=== PATIENT | female | born 1970 | race Caucasian/White ===

== ENCOUNTER → 2016-06-26 | Day surgery (SDC) | payer OTHER ==
[~2016-06-26] VITALS: Ht 152.4 cm; Wt 65.8 kg
[~2016-06-26] MED LIST: CELEBREX200 MG PO; CLARITIN-D 12HR1 T12 PO; KEFLEX500 M1 PO; LYSTEDA650 MG PO; MULTIVITAMIN1 TAB PO; OXYCODONE HCL5 M1 PO; TORADOL10 MG PO; VALIUM5 M2 PO
--- NOTE | 2016-06-26 14:39 | Operative Report ---
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 Ancef was given and the right breast was prepped and draped in a sterile fashion using ChloraPrep. Local anesthesia 1% lidocaine exception Marcaine was given and a curvilinear incision was made at 9:00 in the right breast. The wire localizing the lesion at 11:00 was superior to the incision and the wire localizing the DCIS at 9:00 was inferior to the incision. The superior wire was brought into the incision and the air concern grasped using Allis clamp. The area was dissected using electrocautery and specimen was removed and marked for an tissues margin map. X-ray confirmed the presence of the clip in the specimen. The inferior wire then was brought into the incision and the air concern was grasped using an Allis clamp. Specimen was removed and marked for orientation using margin map. Intraoperative x-ray confirmed the presence of the clip in the specimen. This was close to the lateral margin and additional lateral margin tissue was taken as well. Stasis was achieved using electrocautery. Deep tissue was approximated using interrupted Vicryl sutures. The skin was closed using a running Monocryl subcutaneous color stitch. Steri- Strips and sterile dressings were applied and the patient was transferred to the recovery room in satisfactory condition having tolerated the procedure well.
--- NOTE | 2016-06-26 15:29 | MAMMOGRAPHY REPORT ---
EXAMINATION: MM PREOPERATIVE LOCALIZATION BREAST,RIGHT (X2) CLINICAL INFORMATION: A 46-year-old female with focal lobular carcinoma in situ at 10 o'clock, diagnosed on MRI-guided biopsy. 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 Preoperative needle localizations of both these 2 areas are requested. Patient is also known to have a tissue marker from prior MRI-guided biopsy at 12 o'clock which was benign. TECHNIQUE: After the details of the procedure, as well as the risks, benefits and alternatives to the procedure, were explained to the patient in detail, and all of her questions were answered, preoperative needle localization was performed. Mammographic imaging of the right breast in the LM projection confirms the presence of 2 tissue markers intended for surgical excision at 9 and 10 o'clock (nghia-shaped marker and a ribbon-shaped marker) at the site of prior ultrasound-guided and MRI-guided biopsies. The skin of the right breast was then cleansed with sterile solution. Using mammographic guidance, aseptic technique and 2% 10 mL lidocaine for local anesthesia, a 5 cm Kopans needle-wire system was advanced into the breast from a lateral approach, initially the 10 o'clock tissue marker. Subsequently, using similar technique and a 5 cm Kopans needle wire system, the 9 o'clock tissue marker was also localized. Orthogonal views were then obtained. Final adjustments of the needle tip positions were made, and the wires were deployed. The needles were taken out. The patient tolerated the procedure well, and was discharged from the department of radiology in good stable condition. The images were appropriately labelled. 2 separate worksheets were appropriately filled out and were sent with the patient to the OR. IMPRESSION: Successful mammographically-guided preoperative needle localization of the 10:00 and 9:00 tissue markers within the right breast. EXAMINATION: MM NEEDLE LOCALIZATION SPECIMEN FROM BREAST, RIGHT: TECHNIQUE: Single radiograph (x2) of each of the specimens were performed. FINDINGS: Both the specimens show the hookwire are delivered intact. The biopsy clip markers are identified in each specimens. IMPRESSION: 1. Successful needle localization of lobular carcinoma in situ within the right breast at 10 o'clock. 2. Successful needle localization DCIS within the right breast at 9 o'clock. Results were called to Dr. Morris in the operating room at the time of imaging. The histology reports are pending.
== END ==
LOC: CBW.IIU 06-12 07:00 → CBW.MAMMO 06-12 08:30 → STS 01:40 → CBW.IIU 07:00 → STS 07:00
DX: D05.01 Lobular carcinoma in situ of right breast (principal); D05.11 Intraductal carcinoma in situ of right breast; K21.9 Gastro-esophageal reflux disease without esophagitis
CPT/HCPCS: 81025; 88305; 88307; J0131; J0690; J1100; J1885; J2001; J2250; J2405

== ENCOUNTER 2016-08-28 03:28 | Inpatient (IN) | payer OTHER ==
[~2016-08-28] VITALS: Ht 152.4 cm; Wt 64.4 kg
[~2016-08-28 03:28] MED LIST changes: -KEFLEX500 M1 PO; -OXYCODONE HCL5 M1 PO; -VALIUM5 M2 PO
--- NOTE | 2016-08-28 15:20 | Operative Report ---
Operative/Inv Procedure Report Surgery Date: 08/28/16 Name of Procedure: Bilateral mastectomy, right sentinel lymph node biopsy Pre-Operative Diagnosis: Right breast DCIS Post-Operative Diagnosis: Same Estimated Blood Loss: 50ml to 100ml Surgeon/Plastic And Reconstructive Surgeon: VINICIUS NOBLE MD Anesthesia: general endotracheal tube Specimens: Left breast, long suture mcgowan nipple, short stitch mcgowan medial, right breast, nipple areolar complex, lumpectomy margin, suture mcgowan true margin, sentinel lymph node 1 Operative/Procedure Note Note: Patient is brought to the operating room on 08/28/2016 after informed consent was given. 2 g of Ancef and general anesthesia was administered. She was prepped with ChloraPrep and Betadine paint. Local anesthesia Pap percent Marcaine was administered. 3 mL of methylene blue diluted with 2 mL of saline was injected in the retroareolar fashion. Right axillary lymph node was approached first. An incision was made in the lower axilla and the axilla was explored. There was a single hot lymph node identified and marked as sentinel lymph node. The breast was then approached. The epithelialization was performed by Dr. Dickerson. Incision was made in the left breast. Skin flaps are raised superiorly to the level clavicle medially to the sternum inferiorly to the superior border the rectus sheath and laterally to the latissimus. The breast was then removed from the fascia. The right breast was approached in a similar fashion. The nipple areolar complex was taken separately and marked with a suture at the medial aspect. Careful dissection was performed around the previous lumpectomy and the 9 o'clock position. The breast tissue was removed from the pectoralis fashion marked with a long suture at the nipple and a short suture at medial. Additional tissue was taken at the skin margin above the lumpectomy cavity. Sutures marked at the true margin. Hemostasis was adequate. The remainder of the procedure was done by Dr. Dickerson. Patient tolerated the procedure well.
--- NOTE | 2016-08-28 17:28 | Operative Report ---
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 He requested bilateral reconstruction as she would require bilateral mastectomies. We discussed different reconstructive options preoperatively and the patient requested reconstruction with bilateral [place] mastectomy utilizing dermato- cutaneous flaps and micro-fat grafting. Our plan was also to reconstruct the nipples with immediate bilateral free nipple grafts. Risks discussion preoperatively included but was not limited to the risk of infection, bleeding, failure of the reconstructive effort, the potential for loss of the free nipple grafts, the potential need for additional surgery, and the fact that she would likely require additional micro-fat grafting to complete the reconstruction. Given that the patient had a prior lumpectomy incision along the right lateral breast, she was also told that she might have wound healing delays involving the right breast. The patient and her were allowed to ask questions preoperatively prior to surgery and again on the day of surgery all of their questions were answered and the patient gave consent for surgery. Operative/Procedure Note Note: With the patient on the OR table in the supine position under adequate general anesthesia the breasts abdomen and hips were prepped with chlorhexidine and the breasts were secondarily prepped with Betadine. Patient had been marked preoperatively for a Frankel pattern mastectomy, with plans to de-epithelialize the lower skin flap and bury it under the mastectomy flaps. Both breasts were approached in exactly the same fashion. The inferior portion of the Roque pattern was de-epithelialized bilaterally with #10 scalpel blade after local anesthesia had been infiltrated local anesthesia consisted of 1/2% Marcaine 1- 200,000 epinephrine. Once the mastectomies were completed, tumescent solution was infused into each hip. Total tumescent in right hip was 150 mL. Total tumescent in left hip was 150 mL. Total liposuction output right hip 100 mL. Total liposculpture suction out left hip 90 mL. Fat was suctioned utilizing the micro-air liposculpture suction system, with power set at 65%, and suction set at 20 inches of mercury. Fat was collected in a sterile shippert collection system. Following collection of the fat the 60 mL syringes were manually centrifuged for 3 minutes and the aqueous layer drained away. Fat was then transferred into 5 mL syringes. Micro-fat grafting was then performed into each side. Fat was grafted into the pectoralis major muscle was between the pectoralis major and pectoralis minor muscle and also into the serratus fascia. Approximately 5 mL of fat was grafted into the inferior dermatophytic cutaneous skin flap following completion of micro-fat grafting a 10 mm Dangelo-Chávez drain was brought out through the lateral aspect of each inframammary incision and secured with a 3-0 nylon suture. Dramatic cutaneous skin flaps were then closed with a 3-0 Vicryl three-cornered tacking stitch followed by skin clips along the vertical limb and inframammary incisions. The inframammary incisions were then closed in layers with a running 3-0 absorbable V lock suture followed by running 4-0 Monocryl subcuticular stitch. The vertical limb incision was also closed with deep inverted 4-0 Vicryl subdermal sutures. Patient was then placed in an upright seated position and new areolar openings were marked bilaterally measuring 38 mm in diameter. The inferior aspect of each areola was set at 4 cm superior to the inframammary fold. Full-thickness nipple resection was performed from each mastectomy specimen in preparation for free nipple grafting. The nipple grafts were defatted with iris scissors, fenestrated with a #11 blade, and then stored in a saline moistened gauze placed in a sterile specimen cup to internal was placed in an ice bath. Each nipple areolar complex was now removed from its sterile container and placed into its respective donor site. Tie-over bolster dressing was fashioned by suturing the nipple graft into place with interrupted 4-0 nylon sutures left long. A running 4-0 chromic suture was then placed around the perimeter of each graft. A bolster dressing was then fashioned consisting of Xeroform gauze saline soaked cotton balls followed by moist gauze dry gauze. The vertical limb incision extending from the lower aspect of the areolar bolster dressing down to the transverse inframammary incision was closed with a running 4-0 Monocryl subcuticular stitch. Sterile dressings were applied to the breasts consisting of 4 x 4 inch fluff gauze, Kerlix gauze, ABD pads, a postsurgical bra, and a six-inch Jason wrap. The fact graft 3 mm donor incisions were closed with deep inverted 4-0 Vicryl subdermal sutures, and interrupted 5-0 nylon sutures, and dressed with a Steri-Strip 2 x 2 gauze and sterile Band-Aid. An abdominal binder was then applied. Patient was extubated and then transferred to the recovery area in stable condition. Findings: None Discharge Disposition: Same Day Admissions
[2016-08-28 18:59] VITALS: BP 122/68
--- NOTE | 2016-08-28 21:44 | NUR ---
PT DOES NOT HAVE OOB ORDERS AND NEEDS TO URINATE. SURGICAL PA CALLED. OK TO GET TO [facility] PER SURGICAL
[2016-08-28 22:37] VITALS: BP 102/58
[2016-08-29 02:52] VITALS: BP 90/58
--- NOTE | 2016-08-29 07:00 | NUR ---
CALLED SURIGCAL PA JODIE LAST PM FOR CLARIFICATION OF DRAIN OUTPUT. ORDER SAYS CALL MD IF OUTPUT IS LESS THAN 120. PER SURGICAL PA, CALL MD IF OUTPUT IS GREATER THAN 120 ML.
[2016-08-29 07:09] VITALS: BP 88/52
--- NOTE | 2016-08-29 07:09 | NUR ---
SURGICAL PA PAGED DRAIN OUTPUT ORDER HAS NOT BEEN CHANGED IN COMPUTER FOR PARAMETERS. ALSO BP IS 88/52, AWAITING CALLBACK
--- NOTE | 2016-08-29 08:02 | NUR ---
BP REPORTED TO SERAFIN FLETCHER, ALSO SHE WILL REORDER IVF AND CHANGE DRAIN OUTPUT PARAMETERS
--- NOTE | 2016-08-29 09:23 | Surgical Discharge Summary ---
Visit Information Visit Dates Admission Date: 08/28/16 Discharge Date: 08/29/16 History of Present Illness Chief Complaint: Right breast cancer, stage 0 Medical History Blood Transfusion Hx: No Neurological: migraine, TENSION HEADACHES EENT: NONE Cardiovascular: HYPOTENSION Respiratory: NONE Gastrointestinal: NONE Hepatic: NONE Renal: NONE Musculoskeletal: NONE Psychiatric: NONE Endocrine: NONE Blood Disorders: NONE Cancer(s): NONE STRATEGY LEAD/Reproductive: NONE History of MRSA: No History of VRE: No History of CDIFF: No Isolation History: Standard Influenza Vaccine: 01/30/16 Surgical History Pertinent Surgical History: non-contributory, BONE REMOVAL L LEFT FOOT Psychosocial History Where Do You Live? Home Who Do You Live With? Family What is Your Primary Language? Bahamian Review of Systems: neg Hospital Course Course Attending Physician: REAL PASTOR,ELIZABETH Primary Care Physician: AKASH PASTOR,[facility] Course: Patient was admitted on 08/28/2016 underwent bilateral mastectomy and right sentinel lymph node biopsy with immediate reconstruction. She did well postoperatively. Pain was controlled on by mouth pain medication and she was tolerating regular diet. She was discharged home with follow-up appointments scheduled Allergies: Coded Allergies: No Known Allergies (08/21/16) Disposition Summary Disposition Principal Diagnosis: Right breast cancer Additional Diagnosis: None Discharge Disposition: home or self care Discharge Instructions General Discharge Information Code Status: Full Code Patient's Diet: Ad odilon. Patient's Activity: No arm extension above 90 Follow-Up Instructions/Appts: All of his with Dr. Dickerson and Elizabeth Morris MD scheduled for this week
--- NOTE | 2016-08-29 09:42 | Patient Discharge Instructions ---
Discharge Instructions General Discharge Information You were seen/treated for: dcis right breast You had these procedures: bilateral mastectomy with breast reconstruction Watch for these problems: increasing pain despite pain medication, redness, warmth, swelling, drainage, fever >101.5 Call Surgeon to remove: Other (drains) Do not soak the wound: Yes Other wound care: Keep wound clean and dry Diet Continue normal diet: Yes Activity Full Activity/No Limits: No Activity Self Limited: Yes Pounds, do NOT lift more than: 5 Acute Coronary Syndrome Inclusion Criteria At DC or during hospital stay patient has or had the following: ACS DIAGNOSIS No Discharge Core Measures Meds if any: Prescribed or Continued at Discharge Meds if any: NOT Prescribed or Continued at Discharge Congestive Heart Failure Inclusion Criteria At DC or during hospital stay patient has or had the following: CHF DIAGNOSIS No Discharge Core Measures Meds if any: Prescribed or Continued at Discharge Meds if any: NOT Prescribed or Continued at Discharge Cerebrovascular accident Inclusion Criteria At DC or during hospital stay patient has or had the following: CVA/TIA Diagnosis No Discharge Core Measures Meds if any: Prescribed or Continued at Discharge Meds if any: NOT Prescribed or Continued at Discharge Venous thromboembolism Inclusion Criteria VTE Diagnosis No VTE Type NONE VTE Confirmed by (Test) NONE Discharge Core Measures - Per Current guidelines, there needs to be overlap - treatment for the first 5 days of Warfarin therapy. - If discharged on Warfarin prior to 5 days of - overlap therapy, the patient will need to be - assessed for post discharge needs including - *Post discharge parental anticoagulation - *Warfarin and/or parental anticoagulation education - *Follow up date to check INR post discharge At least 5 days overlap therapy as Inpatient No Meds if any: Prescribed or Continued at Discharge Note: Overlap Therapy is Warfarin and Anticoagulant Meds if any: NOT Prescribed or Continued at Discharge
[2016-08-29] MEDS ORDERED: OXYCODONE HCL5 M1 PO (09:43)
--- NOTE | 2016-08-29 09:52 | PN- General Surgery ---
Subjective Subjective: Patient reporting no acute overnight events. States that her pain has been controlled. She denies nausea and vomitting. She denies chest pain, shortness of breath and difficulty breathing. She denies nausea and vomitting. Objective Vital Signs and I&Os Vital Signs Date Time Temp Pulse Resp B/P Pulse O2 O2 Flow FiO2 Ox Delivery Rate 08/29 708 98.7 73 18 88/52 98 Room Air 08/29 0252 98.4 74 18 90/58 97 Room Air 08/29 0000 Room Air 08/28 2237 98.7 86 20 102/58 100 Room Air 08/28 2000 Room Air 08/28 1859 97.7 82 20 122/68 100 Room Air Intake & Output 08/29 1600 08/29 0808/29 0000 08/28 0000 Intake Total 1000 1000 Output Total 545 775 Balance 455 225 Intake, IV 600 600 Intake, Oral 400 400 Output, 45 75 Drainage Output, Urine 500 700 Patient 142 lb Weight Physical Exam: General: alert and oriented x3, no acute distress Cardiac: RRR, s1s2 Pulmonary: C TA bilaterally Abdomen: Non-tender, non-distended Extremiteis: Bialterally upper extremity swelling noted, motor intact, vascular intact. Bilateral calves soft and non-tender Surgical site: Bilateral breasts. Dressing dry and intact. No chest swelling. Drains with small amounts of sanguinous drainage. Assessment/Plan Assessment/Plan This is a 46 year old female, POD 1, s/p bilateral mastectomy with reconstruction, doing well -Oxycodone po for pain -OOB -Diet as tolerated -Seen by Dr. Morris this am -Okay for discharge to home with eze drains Core Measures/Miscellaneous Venous Thromboembolism VTE Risk Factors: Age > 40, Cancer/chemo/oth therapy VTE Contraindications: No Contraindications VTE Diagnosis: No Beta Parmjit Is Beta Parmjit a Home Med? No Antibiotics Is Patient on Antibiotics? Yes If Yes: prophylaxis
[2016-08-29] MEDS ORDERED: KEFLEX500 M1 PO (10:18)
[2016-08-29] MEDS ORDERED: VALIUM5 M2 PO (10:20)
--- NOTE | 2016-08-29 10:21 | PN- Plastic Surgery ---
Subjective Subjective: Feels well no problems. Very comfortable. Wants to go home. Objective Vital Signs and I&Os Vital Signs Date Time Temp Pulse Resp B/P Pulse O2 O2 Flow FiO2 Ox Delivery Rate 08/29 708 98.7 73 18 88/52 98 Room Air 08/29 0252 98.4 74 18 90/58 97 Room Air 08/29 0000 Room Air 08/28 2237 98.7 86 20 102/58 100 Room Air 08/28 2000 Room Air 08/28 1859 97.7 82 20 122/68 100 Room Air Intake & Output 08/29 1600 08/29 0800 08/29 0000 08/28 1600 08/28 0800 08/28 0000 Intake Total 1000 1000 Output Total 545 775 Balance 455 225 Intake, IV 600 600 Intake, Oral 400 400 Output, 45 75 Drainage Output, Urine 500 700 Patient 142 lb Weight Physical Exam: Mastectomy skin flaps appear viable. Nipple bolster dressings intact. DANIA drains functional bilaterally. Serosanguineous drainage is expected bilaterally. No hematomas. Physical Exam General Appearance: no apparent distress Assessment/Plan Assessment/Plan Doing well status post bilateral goldiloclks mastectomies with immediate microfat graft reconstruction. Skin flaps appear viable. Ready for discharge home with current dressings in place. Drains to remain in place as well. Patient may change out her breasts dressings on Wednesday as instructed. Drain care as instructed. Patient not to change posterior nipple dressings. Patient already given prescriptions for Keflex 500 mg by mouth twice a day for 7 days as well as oxycodone 5 mg 1-2 tablets by mouth every 4-6 hours when necessary pain, total of 50 tablets were given. Patient to continue the abdominal binder for light compression to the hips area she may sponge bath but must keep drain sites dry. Follow up next week on postoperative day #6 for nipple bolster changes. Core Measures/Miscellaneous Venous Thromboembolism VTE Risk Factors: Age > 40, Cancer/chemo/oth therapy VTE Contraindications: No Contraindications VTE Diagnosis: No Beta Parmjit Is Beta Parmjit a Home Med? No Antibiotics Is Patient on Antibiotics? Yes If Yes: prophylaxis
[2016-08-29 11:01] VITALS: BP 100/60
[2016-08-29 15:35] VITALS: BP 96/54
== END 2016-08-29 15:20 | DRG 578 ==
LOC: ENRESERVDT → ENRESERVTM → ENPENDDIS 03:28 → SDA 03:28 → 2NB 18:17
PROVIDERS: ADMIT Surgery
PROC: 07B50ZX Excision of Right Axillary Lymphatic, Open Approach, Diagnostic (ICD-10-PCS; principal; 2016-08-28)
PROC: 0HBV0ZZ Excision of Bilateral Breast, Open Approach (ICD-10-PCS; principal; 2016-08-28)
PROC: 0HX5XZZ Transfer Chest Skin, External Approach (ICD-10-PCS; 2016-08-28)
PROC: 0JDM3ZZ Extraction of Left Upper Leg Subcutaneous Tissue and Fascia, Percutaneous Approach (ICD-10-PCS; 2016-08-28)
PROC: 0HRV37Z Replacement of Bilateral Breast with Autologous Tissue Substitute, Percutaneous Approach (ICD-10-PCS; 2016-08-28)
PROC: 0JDL3ZZ Extraction of Right Upper Leg Subcutaneous Tissue and Fascia, Percutaneous Approach (ICD-10-PCS; 2016-08-28)
DX: D05.11 Intraductal carcinoma in situ of right breast (principal); K21.9 Gastro-esophageal reflux disease without esophagitis; K58.9 Irritable bowel syndrome, unspecified
CPT/HCPCS: 2NBSP; 81025; 88305; 88307; J0131; J0171; J0690; J1644; J7042